=== PATIENT | male | born 1955 | race Caucasian/White ===

== ENCOUNTER 2025-06-28 10:33 | Outpatient (CLI) | payer MEDICARE, SELFPAY ==
[2025-06-28 11:48] LABS: Hematocrit 37.0 % (37.0-53.0); Hemoglobin* 12.1 gm/dL (13.5-17.5); Immature Granulocytes Pct Auto 6.6 %; Mean Corpuscular HGB Conc 33 gm/dL (32-36); Mean Corpuscular Hemoglobin 31 pg (26-34); Mean Corpuscular Volume 96 fL (80-100); RDW Coefficient of Variation % 13.3 % (11.5-15.5); Red Blood Count 3.86 m/uL (4.30-5.90); White Blood Count* 11.10 K/uL (4.50-11.00)
[2025-06-28 11:54] LABS: Immature Granulocytes Abs Auto 0.70 K/uL (0.00-0.30); Lymphocytes Absolute Auto 2.30 K/uL (0.90-2.90); Slide Review Reflex Yes
[2025-06-28 12:09] LABS: Chloride* 106 mmol/L (96-114)
[2025-06-28 12:10] LABS: Albumin* 3.7 g/dL (3.3-5.0); Potassium* 3.9 mmol/L (3.6-5.1); Sodium* 136 mmol/L (135-149)
[2025-06-28 12:12] LABS: Blood Urea Nitrogen* 12 mg/dL (7-30); Creatinine* 0.7 mg/dL (0.5-1.5); Estimated Glomerular Filt Rate 98 ml/min
[2025-06-28 12:13] LABS: Alanine Aminotransferase* 40 U/L (4-50); Alkaline Phosphatase* 79 U/L (40-150); Anion Gap 4 mEq/L (7-15); Aspartate Amino Transferase* 37 U/L (12-35); Bilirubin Total* 0.4 mg/dL (0.1-1.5); Calcium* 9.1 mg/dL (8.4-10.6); Carbon Dioxide* 26 mmol/L (20-32); Glucose* 114 mg/dL (60-115); Total Protein* 7.3 g/dL (6.0-8.3)
[2025-06-28 13:16] LABS: Slide Review Acceptable Review (Acceptable)
== END 2025-06-28 10:34 | disposition home or self-care (01) ==
PROVIDERS: PCP Internal Medicine; Visit Provider Psychiatry & Neurology Neurology
DX: C71.9 Malignant neoplasm of brain, unspecified (principal)
CPT/HCPCS: 36415; 80053; 82040; 85025